=== PATIENT | male | born 1990 | race African-American/Black ===

== ENCOUNTER 2017-03-12 19:11 | Emergency (ER) | payer MEDICAID ==
[~2017-03-12] VITALS: Ht 175.3 cm; Wt 82.0 kg
[2017-03-12 23:15] VITALS: BP 129/62
== END 2017-03-12 23:40 | disposition home or self-care (01) ==
LOC: ER 19:12
DX: J32.9 Chronic sinusitis, unspecified (principal); J45.909 Unspecified asthma, uncomplicated
CPT/HCPCS: 99283

== ENCOUNTER 2018-01-16 01:01 | Emergency (ER) | payer MEDICAID ==
[~2018-01-16] VITALS: Ht 175.3 cm; Wt 82.0 kg
[2018-01-16] MEDS ORDERED: DIAZEPAM 5 MG TABLET PO ONE (06:30)
[2018-01-16 08:25] VITALS: BP 119/77
== END 2018-01-16 08:54 | disposition home or self-care (01) ==
LOC: ER 01:01
DX: M54.5 Low back pain (principal)
CPT/HCPCS: 99283; Z7610

== ENCOUNTER 2019-01-07 11:42 | Emergency (ER) | payer MEDICAID ==
[~2019-01-07] VITALS: Ht 175.3 cm; Wt 93.0 kg
[2019-01-07] MEDS ORDERED: IBUPROFEN 800MG TABLET PO ONE (16:45)
[2019-01-07 17:09] VITALS: BP 131/62
== END 2019-01-07 18:17 | disposition home or self-care (01) ==
LOC: ER 12:54
DX: S13.4XXA Sprain of ligaments of cervical spine, initial encounter (principal); M43.16 Spondylolisthesis, lumbar region; V49.40XA Driver injured in collision with unspecified motor vehicles in traffic accident, initial encounter; Y93.89 Activity, other specified; Y92.410 Unspecified street and highway as the place of occurrence of the external cause
CPT/HCPCS: 72040; 72100; 99283